=== PATIENT | male | born 1940 | race Caucasian/White ===

== ENCOUNTER 2017-10-30 04:09 | Emergency (ER) | payer MEDICARE ==
[2017-10-30 04:57] LABS: Hemoglobin 12.9 g/dL (14.0-18.0); Mean Corpuscular HGB CONC 33.1 g/dL (32.0-36.0); Mean Corpuscular Hemoglobin 32.8 pg (27.0-31.0); Mean Corpuscular Volume 99.1 fl (80.0-94.0); Mean Platelet Volume 6.5 fL (7.4-10.4); Platelet Count 175 thou/uL (130-400); RBC Distribution Width 11.7 % (11.5-14.5); Red Blood Cell (RBC) Count 3.94 mill/uL (4.70-6.10); White Blood Cell (WBC) Count 6.9 thou/uL (4.8-10.8)
[2017-10-30 05:15] LABS: Band 2 % (5-11); Eosinophils 1 % (0-10); Lymphocytes 11 % (21-51); MDiff Complete? YES; Monocytes 19 % (0-10); Neutrophil 67 % (42-75)
[2017-10-30 05:19] LABS: ALT (SGPT) 29 U/L (8-55); AST (SGOT) 41 U/L (5-34); Albumin 3.9 g/dL (3.4-4.8); Alkaline Phosphatase 73 U/L (40-150); Anion Gap 10 mmol/L (10-20); BUN (Urea Nitrogen) 16 mg/dL (8.4-25.7); Bilirubin, Total 0.6 mg/dL (0.2-1.2); Calc. Creatinine Clearance 0 mL/min (70-130); Carbon Dioxide 26 mmol/L (23-31); Chloride 102 mmol/L (98-107); Estimated GFR-MDRD 78; Globulin 2.4 g/dL (2.4-3.5); Glucose 105 mg/dL (83-110); Potassium 3.8 mmol/L (3.5-5.1); Protein, Total 6.3 g/dL (5.8-8.1); Sodium 134 mmol/L (136-145)
[2017-10-30 05:23] LABS: CKMB 3.7 ng/mL (0-6.6); Troponin I 0.014 ng/mL (< 0.028)
[2017-10-30] MEDS ORDERED: Acetaminophen 500 MG TAB ONE (05:24)
[2017-10-30 06:31] LABS: Bilirubin Negative (Negative); Blood, Urine Negative (Negative); Clarity CLEAR (Clear); Glucose, Urine (Dipstick) Negative (Negative); Leukocyte Negative (Negative); Nitrite Negative (Negative); Protein, Urine (Dipstick) Trace mg/dL (Neg-Trace); Specific Gravity, Urine 1.017 (1.002-1.036); pH, Urine 7.5 (5.0-9.0)
[2017-10-30 07:31] LABS: Legionella Urinary Ag Negative (Negative)
--- NOTE | 2017-10-30 08:20 | RAD ---
CHEST 1 VIEW: HISTORY: Fever. COMPARISON: Earlier exam same date. FINDINGS: Cardiac silhouette is magnified by projection. Pulmonary vasculature is upper limits of normal. Med iastinum is midline. No lobar consolidation or evidence of pneumothorax. There are degenerative jaren nges of each shoulder. IMPRESSION: No active cardiopulmonary abnormalities are demonstrated. POS: [facility]
--- NOTE | 2017-10-30 08:47 | RAD ---
PORTABLE CHEST 1 VIEW: DATE: 10/30/17. TIME: 4:37 a.m. HISTORY: Cough, weakness, fever. FINDINGS: The heart size is normal. No focal areas of consolidation, pneumothorax, or pleural effusions are se en. There are degenerative changes in the spine and shoulder joints. IMPRESSION: No acute process. POS: OFF
== END 2017-10-30 08:17 ==
LOC: ERS 04:09
DX: J18.9 Pneumonia, unspecified organism (principal); Z79.82 Long term (current) use of aspirin; Z79.899 Other long term (current) drug therapy
CPT/HCPCS: 51701; 71045; 80053; 81003; 82553; 84484; 85025; 87040; 87081; 87430; 87804; 87899; 93005